=== PATIENT | male | born 1950 | race Caucasian/White ===

== ENCOUNTER 2019-05-13 04:32 | Emergency (ER) | payer BC ==
--- NOTE | 2019-05-13 04:49 | ED Physician Documentation ---
PD HPI DYSPNEA - Stated complaint Stated Complaint: SOA - Chief complaint Chief Complaint: Resp - History obtained from History obtained from: Patient - History of Present Illness Timing - onset: How many days ago (several) Timing - onset during: Light activity, Exertion Timing - details: Gradual onset, Still present, Waxing and waning Inciting event(s): No: Out of meds, URI, Immobilization/travel (they are visiting from [place]) Worsened by: Exertion, Laying flat Associated symptoms: Palpitations (chronic atrial fib.), Bilateral edema (mild). No: Fever, Cough, Hemoptysis, Wheezing Similar symptoms before: Diagnosis (history of some CHF related to atrial fib. No history of MA. Seen by his PMD in last couple weeks and had labs/CXR with reported results of some CHF. Had meds changed in last couple weeks, with change in diuretic and had Carvedilol started. He is having increased dyspnea the past week despite those.) Review of Systems Constitutional: denies: Fever, Chills Nose: denies: Rhinorrhea / runny nose, Congestion Throat: denies: Sore throat Cardiac: reports: Chest pain / pressure, Palpitations Respiratory: denies: Cough GI: denies: Nausea, Vomiting, Diarrhea, Bloody / black stool Musculoskeletal: denies: Neck pain, Back pain PD PAST MEDICAL HISTORY - Past Medical History Past Medical History: Yes Cardiovascular: Hypertension, Atrial fibrillation Respiratory: Sleep apnea Neuro: None Endocrine/Autoimmune: Type 2 diabetes HEENT: None Derm: None - Past Surgical History Past Surgical History: Yes General: Appendectomy - Present Medications Home Medications: Ambulatory Orders Medication Instructions Recorded Confirmed Carvedilol 6.25 mg PO BID 05/13/19 05/13/19 Dapagliflozin Propanediol [Farxiga] 10 mg PO DAILY 05/13/19 05/13/19 Furosemide 40 mg PO BID 05/13/19 05/13/19 Gabapentin 600 mg PO TID 05/13/19 05/13/19 Isosorbide Mononitrate ER [Imdur] 30 mg PO DAILY #10 tablet 05/13/19 Pioglitazone [Actos] 45 mg PO DAILY 05/13/19 05/13/19 Potassium Chloride 10 meq PO BID 05/13/19 05/13/19 Sildenafil Citrate [Viagra] 100 mg PO DAILY 05/13/19 05/13/19 Warfarin [Coumadin] 5 mg PO DAILY 05/13/19 05/13/19 diltiaZEM CD [Cardizem Cd] 120 mg PO DAILY #15 capsule 05/13/19 traMADol [Ultram] 50 mg PO TID 05/13/19 05/13/19 - Allergies Allergies/Adverse Reactions: Allergies Allergy/AdvReac Type Severity Reaction Status Date / Time No Known Drug Allergies Allergy Verified 05/13/19 04:42 - Social History Does the pt smoke?: No Smoking Status: Never smoker Does the pt drink ETOH?: No Does the pt have substance abuse?: No - Immunizations Immunizations are current?: Yes - POLST Patient has POLST: No PD ED PE NORMAL - Vitals Vital signs reviewed: Yes - General General: Alert and oriented X 3, Well developed/nourished - Neck Neck: Supple, no meningeal sign, No adenopathy - Cardiac Cardiac: No murmur. No: RRR - Respiratory Respiratory: Clear bilaterally - Abdomen Abdomen: Soft, Non tender - Derm Derm: Normal color, Warm and dry - Extremities Extremities: No tenderness to palpate, Normal ROM s pain, No calf tenderness / cord, Other (mild 1+ edema in both lower legs. ) Results - Vitals Vitals: Vital Signs - 24 hr 05/13/19 05/13/19 05/13/19 04:39 04:53 04:58 Temperature 36.2 C L Heart Rate 115 H 110 H 105 H Respiratory 24 16 19 Rate Blood Pressure 137/100 H O2 Saturation 99 97 99 05/13/19 05/13/19 05/13/19 05:13 05:20 05:21 Temperature Heart Rate 107 H 109 H 108 H Respiratory 22 20 Rate Blood Pressure 122/90 H 106/93 H O2 Saturation 98 96 95 05/13/19 05/13/19 05/13/19 05:34 06:02 06:11 Temperature Heart Rate 102 H 109 H 109 H Respiratory 22 19 20 Rate Blood Pressure 121/97 H O2 Saturation 99 97 96 05/13/19 05/13/19 05/13/19 06:14 06:19 06:20 Temperature Heart Rate 112 H 88 90 Respiratory 22 14 14 Rate Blood Pressure 111/80 103/69 O2 Saturation 95 97 95 05/13/19 05/13/19 05/13/19 06:24 06:25 06:40 Temperature Heart Rate 95 89 87 Respiratory 20 20 20 Rate Blood Pressure 105/79 O2 Saturation 95 95 96 05/13/19 05/13/19 05/13/19 06:42 06:57 07:05 Temperature Heart Rate 93 Respiratory 18 18 Rate Blood Pressure 110/82 H O2 Saturation 96 96 Oxygen O2 Source Room air Oxygen Flow Rate 6 - EKG (time done) 05:05 Rate: Rate (enter#) (107) Rhythm: Atrial fibrillation [place]: Normal Intervals: Normal DC QRS: Normal Ischemia: Normal ST segments. No: ST elevation c/w ischemia, ST depression - Labs Labs: Laboratory Tests 05/13/19 05/13/19 05/13/19 05:08 05:08 05:08 WBC 9.1 RBC 4.80 Hgb 15.3 Hct 47.0 MCV 97.9 H MCH 31.9 H MCHC 32.6 RDW 14.3 Plt Count 158 MPV 10.9 Neut # (Auto) 7.0 H Lymph # (Auto) 1.4 L [place] # (Auto) 0.6 Eos # (Auto) 0.1 Baso # (Auto) 0.0 Absolute Nucleated RBC 0.00 Nucleated RBC % 0.0 Whole Blood INR Sodium 138 Potassium 3.4 L Chloride 105 Carbon Dioxide 22 Anion Gap 11.0 BUN 19 Creatinine 0.9 Estimated GFR (MDRD) 84 L Glucose 179 H Calcium 8.9 Magnesium 2.0 Total Bilirubin 1.0 AST 25 ALT 33 Alkaline Phosphatase 76 Troponin I 0.04 B-Natriuretic Peptide Total Protein 6.3 L Albumin 3.8 Globulin 2.5 Albumin/Globulin Ratio 1.5 Lipase 32 TSH 05/13/19 05/13/19 05/13/19 05:08 05:08 06:40 WBC RBC Hgb Hct MCV MCH MCHC RDW Plt Count MPV Neut # (Auto) Lymph # (Auto) [place] # (Auto) Eos # (Auto) Baso # (Auto) Absolute Nucleated RBC Nucleated RBC % Whole Blood INR 3.0 H Sodium Potassium Chloride Carbon Dioxide Anion Gap BUN Creatinine Estimated GFR (MDRD) Glucose Calcium Magnesium Total Bilirubin AST ALT Alkaline Phosphatase Troponin I B-Natriuretic Peptide 547 H Total Protein Albumin Globulin Albumin/Globulin Ratio Lipase TSH 2.86 - Rads (name of study) chest xray Radiology: Prelim report reviewed, EMP read contemporaneously (mild enlarged heart. mild vascular congestion. ), See rad report PD MEDICAL DECISION MAKING - ED course Complexity details: considered differential (He is having progressive dyspnea over the past week. He had changed diuretics from hydrochlorothiazide to furosemide and had carvedilol added about 10 days ago. This should have improved his symptoms however he is actually feeling worse. He had had problems with metoprolol in the past having him feel worse breathing 2. He does not have generally the appearance of fluid overload per se but he is running fast rate atrial fibrillation and is blood pressure so on diastolic hypertension at 100-1 10. This is likely giving him an outflow problem and left-sided heart failure. I did give him some increased diuresis but mostly given nitrate and extra slowing for the heart rate with a dose of metoprolol. However after discussion and is feeling that beta-blockers have made him feel worse, we will change instead to diltiazem combined with some M door over the next several days until he can see his primary care back home in [place]. He is feeling improved enough here. His oxygenation is adequate. His heart rate is below 100. He does not feel that he needs hospitalization and he does seem stable for discharge.), d/w patient Departure - Departure Disposition: 01 Home, Self Care Clinical Impression: Atrial fibrillation, rapid Dyspnea Qualifiers: Dyspnea type: shortness of breath Qualified Code(s): R06.02 - Shortness of breath CHF (congestive heart failure) Qualifiers: Heart failure type: diastolic Heart failure chronicity: acute on chronic Qualified Code(s): I50.33 - Acute on chronic diastolic (congestive) heart failure Condition: Stable Record reviewed to determine appropriate education?: Yes Instructions: ED Afib, ED CHF Left Side Prescriptions: diltiaZEM CD [Cardizem Cd] 120 mg PO DAILY #15 capsule Isosorbide Mononitrate ER [Imdur] 30 mg PO DAILY #10 tablet Comments: Your heart rate was going faster between 110 and 120 and your blood pressure was elevated predominantly in the diastolic with the initial readings proximally 140/100. I think this was not allowing your heart to pump properly and therefo re build up the fluid in your lungs. Stop the carvedilol beta-royer since it did not seem to be working well for you. Instead take diltiazem daily to try to control your heart rate adequately. Also add indoor nitrate daily to have your blood pressure reasonably lower. Check your blood pressure daily and hold the Imdur if your systolic pressure is less than 115. Continue your other medications including the furosemide daily and the potassium supplement. Follow-up with your primary care over the next few days, call for an appointment. Your oxygenation level was actually adequate at 96% on room air so the added oxygen will only have an incremental value added. Your Coumadin level was 3.0 today. Discharge Date/Time: 05/13/19 07:06
[2019-05-13] MEDS ORDERED: FUROSEMIDE 20 MG/2 ML VIAL IVP STA (05:03)
[2019-05-13] MEDS ORDERED: NITROGLYCERIN SL 0.4 MG TABLET SL STA (05:03)
[2019-05-13 05:17] LABS: BASOPHILS % (AUTO) 0.4 %; EOSINOPHILS # (AUTO) 0.1 10^3/uL (0.0-0.7); EOSINOPHILS % (AUTO) 0.9 %; HGB - HEMOGLOBIN 15.3 g/dL (14.0-18.0); LYMPHOCYTES # (AUTO) 1.4 10^3/uL (1.5-3.5); LYMPHOCYTES % (AUTO) 15.4 %; MEAN CORPUSCULAR HEMOGLOBIN 31.9 pg (27.0-31.0); MEAN CORPUSCULAR HGB CONC 32.6 g/dL (32.0-36.0); MEAN CORPUSCULAR VOLUME 97.9 fL (80.0-94.0); MEAN PLATELET VOLUME 10.9 fL (7.4-11.4); MONOCYTES # (AUTO) 0.6 10^3/uL (0.0-1.0); MONOCYTES % (AUTO) 6.8 %; NEUTROPHILS % (AUTO) 76.2 %; PLT - PLATELET COUNT 158 10^3/uL (130-450); RED CELL DISTRIBUTION WIDTH 14.3 % (12.0-15.0); WHITE BLOOD COUNT 9.1 x10^3/uL (4.8-10.8)
[2019-05-13 05:32] LABS: ALBUMIN 3.8 g/dL (3.2-5.5); ALBUMIN/GLOBULIN RATIO 1.5 (1.0-2.2); CALCIUM 8.9 mg/dL (8.5-10.3); CREATININE 0.9 mg/dL (0.6-1.2); TOTAL PROTEIN 6.3 g/dL (6.7-8.2)
--- NOTE | 2019-05-13 05:44 | XRAY Report ---
Reason: dyspnea Procedure Date: 05/13/2019 Accession Number: [id number] / [id number] Procedure: XR - Chest 2 View X-Ray CPT Code: 39091 FULL RESULT: EXAM: CHEST RADIOGRAPHY EXAM DATE: 05/13/2019 05:32 AM. CLINICAL HISTORY: Dyspnea. COMPARISON: None. TECHNIQUE: 2 views. FINDINGS: Lungs/Pleura: Pulmonary vascular congestion, interstitial edema, and small effusions. No pneumothorax. Mediastinum: Cardiomegaly. Other: None. IMPRESSION: Cardiomegaly and changes of congestive failure. [facility]
[2019-05-13] MEDS ORDERED: METOPROLOL 5 MG/5 ML VIAL IVP STA (06:04)
[2019-05-13 06:42] VITALS: BP 110/82
[2019-05-13] MEDS ORDERED: diltiaZEM CD 120 MG CAPSULE PO STA (06:44)
== END 2019-05-13 07:06 | disposition home or self-care (01) ==
LOC: ED 04:32
DX: I48.91 Unspecified atrial fibrillation (principal); R06.00 Dyspnea, unspecified; I11.0 Hypertensive heart disease with heart failure; I50.33 Acute on chronic diastolic (congestive) heart failure; E11.9 Type 2 diabetes mellitus without complications; Z79.01 Long term (current) use of anticoagulants
CPT/HCPCS: 36415; 71046; 83690; 83735; 83880; 84484; 85610; 93005; 96374; 96375; 99284; A9270; 80053; 84443; 85025